=== PATIENT | female | born 1955 | race Caucasian/White ===

== ENCOUNTER → 2022-06-14 14:18 | Outpatient (CLI) | payer MEDICARE, OTHER, SELFPAY ==
--- NOTE | 2022-06-14 14:20 | DI.MRI.S_ITS ---
PROCEDURE: MR KNEE RT WO CON INDICATIONS: Unspecified internal derangement of right knee TECHNIQUE: Noncontrast sagittal PD fast spin echo and T2 fast spin echo with fat saturation, sagittal 3-D FLASH with fat saturation; coronal T1 spin echo and PD fast spin echo with fat saturation, and axial PD fast spin echo with fat saturation through the knee. COMPARISON: [facility], CR, XR KNEE STANDING BILATERAL, 05/23/2022, 14:23. FINDINGS: Image quality: Excellent. Menisci: There is amorphous and linear oblique high T2 signal intensity within the inner, middle, and peripheral thirds of the medial meniscal body, demonstrating superior and inferior articular surface extension, indicating complex tearing. Lateral meniscus demonstrates a discoid configuration without tear. Cruciate ligaments: The anterior and posterior cruciate ligaments appear intact. Medial structures: The medial collateral ligament appears intact. Visualized portions of the pes anserinus tendons appear normal. Moderate medial bursal fluid. Lateral structures: The lateral collateral ligament, long and short heads of the biceps femoris tendon appear intact. The popliteus tendon appears normal. Iliotibial band appears normal. Anterior structures: The quadriceps and patellar tendons appear intact. Lateral patellar subluxation. Lateral ventral trochlear prominence. Moderate edema within the superolateral aspect of the infrapatellar fat pad. Bones and cartilage: No bone marrow contusions or fractures. Subchondral cyst formation and degenerative marrow edema within the lateral femoral condyle and lateral femoral trochlea. Mild tricompartmental periarticular osteophyte formation. Moderate articular cartilage loss diffusely overlies the weight-bearing aspects of the medial femoral condyle and medial tibial plateau. Severe articular cartilage loss overlies the patellar apex as well as the lateral patellar facet and lateral femoral trochlea. Joint space: There is a small knee joint effusion and a small Maxwell's cyst. Normal appearing synovial plicae are incidentally noted. IMPRESSION: 1. Tricompartmental osteoarthritis with associated articular cartilage loss. 2. Medial meniscal tearing. 3. Discoid lateral meniscus without tear. 4. Findings consistent with lateral patellofemoral friction syndrome in the appropriate clinical setting. 5. Knee joint effusion and Maxwell's cyst. 6. Medial bursitis. Dictated by: Santos Hubbard M.D. on 06/16/2022 at 10:23 Approved by: Santos Hubbard M.D. on 06/16/2022 at 10:25
== END ==
PROVIDERS: Referring Provider Family Medicine; Visit Provider Family Medicine
DX: S83.241A Other tear of medial meniscus, current injury, right knee, initial encounter (principal); M23.91 Unspecified internal derangement of right knee; M17.11 Unilateral primary osteoarthritis, right knee; M23.300 Other meniscus derangements, unspecified lateral meniscus, right knee; M25.461 Effusion, right knee; M71.21 Synovial cyst of popliteal space [Baker], right knee; M71.561 Other bursitis, not elsewhere classified, right knee
CPT/HCPCS: 73721